=== PATIENT | male | born 1950 | race Caucasian/White ===

== ENCOUNTER → 2016-08-05 15:20 | Outpatient (CLI) | payer MEDICARE ==
[2016-07-07 16:58] VITALS: BMI 30.6
[~2016-08-05 15:20] MED LIST: ACTIGALL 300 M300 MG PO; BACTROBAN NASAL1 GM NASAL; DURAGESIC1 PATCH .3 TRANSDERM; ELIQUIS2.5 MG PO; FISH OIL 1,0001 CA1 PO; FLOMAX0.4 MG PO; HYDROCODONE-APA1 TAB PO; MOBIC7.5 MG PO; MORPHINE IMMEDI30 M1 PO; MORPHINE S20 MG/5 ML PO; MS CONTIN30 MG PO; MUPIROCIN22 GM TOPICAL; NORVASC10 MG PO; NORVASC5 MG PO; OXYCODONE HCL5 MG PO; POTASSIUM99 M1; POTASSIUM99 M1 PO; PRILOSEC20 MG PO; VALIUM10 MG PO; ZESTRIL20 MG PO; ZESTRIL40 MG PO; ZYLOPRIM100 MG PO
[2016-08-05 19:13] LABS: BASOPHILS 0.4 % (0.0-2.0); EOSINOPHILS 0.9 % (0-7); HEMATOCRIT 40.3 % (42.0-54.0); HEMOGLOBIN 12.5 g/dL (13.5-17.5); IMMATURE GRANULOCYTES 0.2 % (0-5); LYMPHOCYTES 23.2 % (15-50); MCH 28.5 pg (26.0-34.0); MCV 91.8 fL (80.0-100.0); MEAN PLATELET VOLUME 10.4 fL (7.4-10.4); MONOCYTES 15.5 % (2-11); NEUTROPHILS 59.8 % (40-80); PLATELET COUNT 273 10x3/uL (130-400); RBC 4.39 10x6/uL (4.20-6.10); RDW 14.4 % (11.5-14.5); WBC 5.3 10x3/uL (4.8-10.8)
[2016-08-05 19:33] LABS: ERYTHROCYTE SEDIMENTATION RATE 62 mm/hr (0-20)
== END | disposition home or self-care (01) ==
LOC: D.LABREF 15:20
PROVIDERS: Orthopaedic Surgery Sports Medicine
DX: M25.561 Pain in right knee (principal); M25.461 Effusion, right knee

== ENCOUNTER → 2016-09-01 13:40 | Outpatient (CLI) | payer MEDICARE ==
[2016-07-07 16:58] VITALS: BMI 30.6
[2016-09-01 13:56] LABS: BASOPHILS 0.4 % (0.0-2.0); EOSINOPHILS 1.5 % (0-7); HEMATOCRIT 42.7 % (42.0-54.0); HEMOGLOBIN 13.5 g/dL (13.5-17.5); IMMATURE GRANULOCYTES 0.2 % (0-5); LYMPHOCYTES 21.4 % (15-50); MCH 27.8 pg (26.0-34.0); MCHC 31.6 g/dL (31.0-37.0); MEAN PLATELET VOLUME 10.9 fL (7.4-10.4); MONOCYTES 15.6 % (2-11); NEUTROPHILS 60.9 % (40-80); RBC 4.85 10x6/uL (4.20-6.10); RDW 14.5 % (11.5-14.5); WBC 4.7 10x3/uL (4.8-10.8)
[2016-09-01 13:58] LABS: PLATELET COUNT 168 10x3/uL (130-400)
[2016-09-01 15:01] LABS: ERYTHROCYTE SEDIMENTATION RATE 14 mm/hr (0-20)
== END | disposition home or self-care (01) ==
LOC: D.LAB 13:40
PROVIDERS: Orthopaedic Surgery Sports Medicine
DX: D72.829 Elevated white blood cell count, unspecified (principal)

== ENCOUNTER → 2018-06-16 12:44 | Outpatient (CLI) | payer MEDICARE ==
[2016-07-07 16:58] VITALS: BMI 30.6
== END | disposition home or self-care (01) ==
LOC: D.MRI 12:44
DX: R20.0 Anesthesia of skin (principal)

== ENCOUNTER → 2018-09-12 07:55 | Outpatient (CLI) | payer MEDICARE ==
[2016-07-07 16:58] VITALS: BMI 30.6
== END | disposition home or self-care (01) ==
LOC: D.MRI 07:55
DX: R20.2 Paresthesia of skin (principal)